=== PATIENT | male | born 1950 | race Caucasian/White ===

== ENCOUNTER 2025-07-28 11:50 | Emergency (ER) | payer OTHER, MEDICARE ==
[2025-07-28 12:00] LABS: BASOPHILS 0.7 % (0.2-1.2); EOSINOPHILS 2.0 % (0.8-7.0); LYMPHOCYTES 16.9 % (21.8-53.1); MCH 29.6 PG (25.7-32.2); MCHC 34.4 g/dL (32.3-36.5); MCV 85.8 fL (79.0-92.2); MONOCYTES 9.6 % (5.3-12.2); NEUTROPHILS 70.7 % (34.0-67.9); RBC 4.87 M/uL (4.63-6.08)
[2025-07-28 12:12] LABS: INR 3.34 (0.80-1.30); PROTIME 32.0 Sec (11.2-14.2)
[2025-07-28 12:20] LABS: ALCOHOL, MEDICAL 128.0 ng/dL (<3); ALT (SGPT) 27.0 U/L (14-59); AST (SGOT) 24.0 U/L (15-37); GLOMERULAR FILTRATION RATE,EST 68.0 mL/min (>60); PROTEIN, TOTAL 7.4 g/dL (6.4-8.2); UREA NITROGEN 22.0 mg/dL (7-18)
[2025-07-28] MEDS ORDERED: HYDROCHLOROTHIA25 MG PO (12:31)
[2025-07-28] MEDS ORDERED: SPIRONOLACTONE25 MG PO (12:31)
[2025-07-28] MEDS ORDERED: ALLOPURINOL300 MG PO (12:31)
[2025-07-28] MEDS ORDERED: ATORVASTATIN CA40 MG PO (12:32)
[2025-07-28] MEDS ORDERED: LOSARTAN POTASS25 MG PO (12:32)
[2025-07-28] MEDS ORDERED: WARFARIN SODIUM5 MG PO (12:32)
[2025-07-28 12:51] LABS: ABO A; ANTIBODY SCREEN NEGATIVE; RH POSITIVE
[2025-07-28 13:29] LABS: BLOOD/HGB, URINE TRACE-I (Negative); KETONE, URINE NEGATIVE (Negative); LEUK ESTERASE, URINE NEGATIVE (negative); NITRITE, URINE NEGATIVE (negative)
[2025-07-28 13:42] LABS: AMPHETAMINES, URINE NEGATIVE (NEGATIVE); BARBITURATES, URINE NEGATIVE (NEGATIVE); BENZODIAZEPINE, URINE NEGATIVE (NEGATIVE); CANNABINOID, URINE NEGATIVE (NEGATIVE); COCAINE, URINE NEGATIVE (NEGATIVE); ECSTASY, URINE NEGATIVE (NEGATIVE); FENTANYL, URINE NEGATIVE (NEGATIVE); METHADONE, URINE NEGATIVE (NEGATIVE); OPIATES, URINE NEGATIVE (NEGATIVE); OXYCODONE, URINE NEGATIVE (NEGATIVE); PHENCYCLIDINE, URINE NEGATIVE (NEGATIVE)
[2025-07-28 13:54] LABS: BACTERIA, URINE NONE SEEN /hpf (negative); CASTS, URINE NONE SEEN \\lpf; CRYSTALS, URINE NONE SEEN (0-1+); EPITHELIAL CELLS, URINE 0 /lpf (0-1+); REFLEX CULTURE, URINE No (No)
[2025-07-28 15:20] VITALS: BP 148/63
== END 2025-07-28 15:20 | disposition home or self-care (01) ==
LOC: ED 11:50
PROVIDERS: Emergency Medicine
DX: S02.5XXA Fracture of tooth (traumatic), initial encounter for closed fracture (principal); S00.01XA Abrasion of scalp, initial encounter; V80.010A Animal-rider injured by fall from or being thrown from horse in noncollision accident, initial encounter; Z79.01 Long term (current) use of anticoagulants; Z79.899 Other long term (current) drug therapy
CPT/HCPCS: 36415; 70450; 70486; 71260; 72125; 74177; 80053; 80307; 81001; 85025; 85610; 86850; 86900; 86901; 99284-25; G0480; Q9967